=== PATIENT | male | born 1940 | race Caucasian/White ===

== ENCOUNTER 2018-06-14 14:05 | Emergency (ER) | payer OTHER ==
[~2018-06-14] VITALS: Ht 182.9 cm; Wt 78.7 kg
[2018-06-14] MEDS ORDERED: ASPIRIN 81MG TAB.CHEW ONE (14:09)
[2018-06-14 14:45] LABS: BASOPHILS % (AUTO) 0.5 % (0.0-5.0); EOSINOPHILS % (AUTO) 1.2 % (0.0-8.0); HEMATOCRIT 47.5 % (42-54); LYMPHOCYTES % (AUTO) 16.6 % (21.0-51.0); MEAN CORPUSCULAR HEMOGLOBIN 30.2 pg (27.0-33.0); MEAN CORPUSCULAR HGB CONC 32.6 g/dL (32.0-36.0); MEAN CORPUSCULAR VOLUME 92.8 fL (79-99); MONOCYTES % (AUTO) 11.5 % (3.0-13.0); NEUTROPHILS % (AUTO) 70.2 % (40.0-77.0); PLATELET COUNT (AUTO) 244 K/uL (130-400); RED BLOOD CELL COUNT(AUTO) 5.12 MIL/uL (4.50-6.20); RED CELL DISTRIBUTION WIDTH 15.3 % (11.0-15.5); WHITE BLOOD COUNT (AUTO) 12.1 K/uL (4.8-10.8)
[2018-06-14 15:04] LABS: INR 1.02 (0.85-1.15); PARTIAL THROMBOPLASTIN TIME 28.7 SEC (26.3-35.5); PROTHROMBIN TIME 10.7 SEC (9.6-11.6)
[2018-06-14 15:05] LABS: CREATININE 1.3 mg/dL (0.5-1.5); POTASSIUM 3.9 mmol/L (3.5-5.1)
[2018-06-14 15:15] LABS: ALBUMIN 3.6 g/dL (3.5-5.0); TOTAL PROTEIN, SERUM 7.1 g/dL (6.0-8.3)
[2018-06-14 16:34] VITALS: BP 105/66
[2018-06-14] MEDS ORDERED: ASPI-1197 PO (16:48)
[2018-06-14] MEDS ORDERED: SAW450CA7 PO (16:48)
[2018-06-14] MEDS ORDERED: TIOT18CA3 IH (16:48)
[2018-06-14] MEDS ORDERED: ATEN50TA PO (16:48)
[2018-06-14] MEDS ORDERED: CHOL100040 PO (16:48)
[2018-06-14] MEDS ORDERED: DABI150C PO (16:48)
[2018-06-14] MEDS ORDERED: BUDE10.22 IH (16:48)
[2018-06-14] MEDS ORDERED: CHLO25TA3 PO (16:48)
[2018-06-14] MEDS ORDERED: LISI40TA4 PO (16:48)
[2018-06-16] MEDS ORDERED: TIOT4MIS5 IH (17:11)
== END 2018-06-14 15:52 | disposition home or self-care (01) ==
LOC: EDH 14:05
DX: I95.9 Hypotension, unspecified (principal)
CPT/HCPCS: 36415; 71045; 80053; 82550; 83874; 84484; 85025; 85610; 85730; 93005

== ENCOUNTER 2018-06-16 10:09 | Inpatient (IN) | payer OTHER | END 2018-06-19 09:40 | disposition home or self-care (01) | LOC: DAH 10:09 → 2AH 10:10 | DX: I95.9 Hypotension, unspecified (principal); R06.00 Dyspnea, unspecified; I20.9 Angina pectoris, unspecified ==

== ENCOUNTER 2020-07-17 08:03 | Day surgery (SDC) | payer MEDICARE ==
[2020-07-13 11:51] VITALS: BP 107/64
[2020-07-13 15:35] LABS: BASOPHILS % (AUTO) 1.1 % (0.0-5.0); EOSINOPHILS % (AUTO) 1.1 % (0.0-8.0); HEMATOCRIT 49.6 % (42-54); LYMPHOCYTES % (AUTO) 12.7 % (21.0-51.0); MEAN CORPUSCULAR HEMOGLOBIN 28.1 pg (27.0-33.0); MEAN CORPUSCULAR HGB CONC 32.3 g/dL (32.0-36.0); MEAN CORPUSCULAR VOLUME 87.2 fL (79-99); NEUTROPHILS % (AUTO) 77.7 % (40.0-77.0); PLATELET COUNT (AUTO) 204 K/uL (130-400); RED BLOOD CELL COUNT(AUTO) 5.69 MIL/uL (4.50-6.20); WHITE BLOOD COUNT (AUTO) 13.6 K/uL (4.8-10.8)
[2020-07-13 15:46] LABS: CREATININE 1.2 mg/dL (0.5-1.5); POTASSIUM 3.8 mmol/L (3.5-5.1)
[2020-07-13 15:49] LABS: INR 1.43 (0.85-1.15); PROTHROMBIN TIME 15.1 SEC (9.6-11.6)
[2020-07-13 15:50] LABS: PARTIAL THROMBOPLASTIN TIME 45.8 SEC (26.3-35.5)
[2020-07-13 16:02] LABS: APPEARANCE,URINE Clear (CLEAR); BILIRUBIN,URINE Negative (NEGATIVE); COLOR,URINE Yellow (YELLOW); GLUCOSE, URINE (UA) Negative (NEGATIVE); KETONES,URINE Negative (NEGATIVE); LEUKOCYTE ESTERASE ,URINE Negative (NEGATIVE); NITRATE,URINE Negative (NEGATIVE); OCCULT BLOOD,URINE Negative (NEGATIVE); PROTEIN,URINE Negative (NEGATIVE); UROBILINOGEN,URINE 0.2 mg/dL (0.2-1.0)
[~2020-07-17] VITALS: Ht 182.9 cm; Wt 70.5 kg
[2020-07-17] VITALS (9 sets, daily range): BP systolic 109–145; BP diastolic 50–76
[~2020-07-17 08:03] MED LIST: 0.9%NACL 1000ML 1,000 ML IV SCH; ATEN50TA PO; BUDE10.22 IH; CHOL100040 PO; DABI150C PO; FURO40TA5 PO; POTA-79 PO; ROSU40TA21 PO; SAW450CA7 PO; TIOT4MIS5 IH
[2020-07-17 08:48] LABS: BASOPHILS % (AUTO) 1.4 % (0.0-5.0); EOSINOPHILS % (AUTO) 1.9 % (0.0-8.0); HEMATOCRIT 52.1 % (42-54); LYMPHOCYTES % (AUTO) 13.2 % (21.0-51.0); MEAN CORPUSCULAR HEMOGLOBIN 28.3 pg (27.0-33.0); MEAN CORPUSCULAR HGB CONC 32.1 g/dL (32.0-36.0); MEAN CORPUSCULAR VOLUME 88.3 fL (79-99); MONOCYTES % (AUTO) 7.3 % (3.0-13.0); NEUTROPHILS % (AUTO) 75.5 % (40.0-77.0); PLATELET COUNT (AUTO) 220 K/uL (130-400); RED CELL DISTRIBUTION WIDTH 15.1 % (11.0-15.5); WHITE BLOOD COUNT (AUTO) 13.8 K/uL (4.8-10.8)
[2020-07-17] MEDS ORDERED: EPOPROSTENOL SODIUM IV ONE (09:30)
[2020-07-17] MEDS ORDERED: [UNRECOGNIZED DRUG - OTHER] IV ONE (09:30)
[2020-07-17] MEDS ORDERED: [UNRECOGNIZED DRUG - OTHER] IV SCH (10:00)
[2020-07-17] MEDS ORDERED: EPOPROSTENOL SODIUM IV SCH (10:00)
[2020-07-17] MEDS ORDERED: HEPARIN 10,000 UNIT/10ML (1,000 UNIT/ML) VIAL ONE (10:15)
[2020-07-17] MEDS ORDERED: IOHEXOL-350 50ML VIAL IV ONE (10:15)
[2020-07-17] MEDS ORDERED: LIDOCAINE HCL 400MG/20ML VIAL ONE (10:15)
[2020-07-17] MEDS ORDERED: IOHEXOL 350 MG/ML 100ML INFUS..BTL IV ONE (10:15)
[2020-07-17] MEDS ORDERED: NITROGLYCERIN 2 MG VIAL IV ONE (10:15)
[2020-07-17] MEDS ORDERED: SODIUM BICARB 50MEQ 50ML VIAL 50 ML ONE (10:26)
[2020-07-17] MEDS ORDERED: ATROPINE 1MG SYG IVP ONE (11:27)
== END 2020-07-17 16:00 | disposition home or self-care (01) ==
LOC: DAH 08:03
PROVIDERS: ATTEND Internal Medicine Cardiovascular Disease
DX: I27.20 Pulmonary hypertension, unspecified (principal); I25.10 Atherosclerotic heart disease of native coronary artery without angina pectoris; J44.9 Chronic obstructive pulmonary disease, unspecified; I48.92 Unspecified atrial flutter; E11.51 Type 2 diabetes mellitus with diabetic peripheral angiopathy without gangrene; Z95.5 Presence of coronary angioplasty implant and graft; Z86.19 Personal history of other infectious and parasitic diseases; Z82.49 Family history of ischemic heart disease and other diseases of the circulatory system; Z87.891 Personal history of nicotine dependence; Z79.01 Long term (current) use of anticoagulants; Z72.89 Other problems related to lifestyle; Z79.899 Other long term (current) drug therapy
CPT/HCPCS: 36415 ×2; 71045; 80048; 81003; 82948; 85025 ×2; 85610; 85730; 93005; 93451; 93463; A4215; A4216; A4221; A4222; A4223 ×3; A4606; A4663; C1894 ×2; J1325; J1644; J3490 ×3; J0461; Q9967